=== PATIENT | female | born 1980 | race Caucasian/White ===

== ENCOUNTER → 2017-06-27 | Emergency (ER) | payer OTHER ==
[~2017-06-27] VITALS: Ht 172.7 cm; Wt 90.7 kg
[~2017-06-27] MED LIST: SINGULAIR4 M1; ZYRTEC10 M3
== END | disposition home or self-care (01) ==
LOC: ER 20:38
DX: R53.81 Other malaise (principal); R50.9 Fever, unspecified

== ENCOUNTER 2019-11-30 10:12 | Outpatient (CLI) | payer OTHER | END 2019-11-30 10:16 | disposition home or self-care (01) | LOC: LAB 10:12 | PROVIDERS: ATTEND Physical Medicine & Rehabilitation | DX: Z20.828 Contact with and (suspected) exposure to other viral communicable diseases (principal) ==